=== PATIENT | male | born 1935 | race Two or more races ===

== ENCOUNTER → 2017-12-09 | Day surgery (SDC) | payer MEDICARE ==
[~2017-12-09] VITALS: Ht 180.3 cm; Wt 84.0 kg
[~2017-12-09] MED LIST: AMLO10TA2 PO; ASPI81TA23 PO; ATEN25TA PO; BENA40TA PO; BUPIVACAINE/EPINEPHRINE 0.25% PF 30 ML VIAL ONE; BUPIVACAINE/EPINEPHRINE 0.5% PF 30 ML VIAL ONE; CHLORHEXIDINE GLUCONATE 2 % 1 PACK (2 CLOTHS) TOPICAL PRN; CHLORHEXIDINE GLUCONATE 4% SOLN 120 ML BTL TOPICAL SCH; CINN500C14 PO; D-3-50003 PO; FINA5TAB2 PO; INSULIN HUMAN REGULAR 1,000 UNITS/10 ML VIAL SQ PRN; LACTATED RINGER'S 1000 ML IV PRN; METOPROLOL TARTRATE 25 MG TAB PO PRN; MIDAZOLAM HCL 2 MG/2 ML VIAL ONE; OMEG12002 PO; PIOG15TA5 PO; POVIDONE IODINE 5% (ANTISEPSIS KIT) 4 APPLICATIONS EACH NARE PRN; PRIM50TA5 PO; SODI650T PO; SODIUM CHLORID 0.9% 500 ML IV PRN; TAMS0.4C4 PO; ceFAZolin 2 GM PREMIX 50 ML IV SCH
[2017-12-09 07:38] VITALS: PULSE 66
[2017-12-09 07:49] VITALS: PULSE 69
--- NOTE | 2017-12-09 10:45 | MP ---
cc: Be Koo MD DATE OF OPERATION: 12/09/2017 SURGEON: Be Koo MD. PREOPERATIVE DIAGNOSIS: 1. Impingement syndrome of the right shoulder with full-thickness rotator cuff tear. 2. Osteoarthritis of the acromioclavicular joint, right shoulder. POSTOPERATIVE DIAGNOSIS: 1. Impingement syndrome of the right shoulder with full-thickness rotator cuff tear. 2. Osteoarthritis of the acromioclavicular joint, right shoulder. PROCEDURE PERFORMED: 1. Anterior decompression with distal claviculectomy. 2. Repair of rotator cuff, chronic. DETAILS OF THE PROCEDURE: The patient was placed on the operating table in the supine position and adequate general anesthesia was administered by the anesthesiologist, Dr. Del Angel. The patient was then transferred into a modified beach chair position and the right shoulder was prepped and draped and well padded in the usual sterile fashion. A time-out was called and the patient's name, procedure, location, etc. were fully confirmed. A superior incision was made over the mid portion between the acromial process and the distal clavicle. The wound was taken down through subcutaneous tissues and bleeding points were clamped and electrocauterized. Deep fascia was incised and the acromioclavicular joint further exposed after transection of the origin of the deltoid muscle along the anterior border of the clavicle and anterior border of the acromial process. We did encounter a thickened coracoacromial ligament, which was also excised. We did encounter almost immediate joint fluid evacuated from the underlying joint. The distal claviculectomy was further exposed and retractors placed underneath it and a transection of approximately 1 cm was carried out with a power saw. The edges were then smoothed with a high-speed bur. The acromial process itself was now thinned utilizing the same high speed bur, which allowed also for complete visualization of a good portion of the rotator cuff and humeral head. There was no longer impinging after the acromioplasty. The rotator cuff edges were developed, debrided and then brought over as far lateral as possible and then repaired with interrupted [id number] sutures utilizing #2 FiberWire. A more or less watertight closure was accomplished and the joint was placed through rotational internal and external rotation revealing no additional tears. The deltoid muscle, after thorough irrigation, was then reinserted and the gap at the distal clavicle was repaired with the deltoid being reinserted with interrupted sutures of #1 Tycron. The subcutaneous tissues were closed with running 3-0 Vicryl. The skin edges were then reapproximated with a running subcuticular 4-0 Vicryl after which Steri-Strips were applied. The patient was placed in a bulky dressing and a sling and swathe immobilizer. ESTIMATED BLOOD LOSS: Approximately 35-50 mL. COUNTS: The sponge count, needle counts and instrument counts were reportedly correct x 2. CONDITION: The patient tolerated the procedure well and was transferred to the recovery room in satisfactory condition. MD MAYA Gil/NEEMA , 10:03 AM , 10:44 AM
[2017-12-09 11:55] VITALS: BP 125/86; PULSE 78; RESP 16; TEMP 98.1; O2SAT 98
== END | disposition home or self-care (01) ==
LOC: PHSDC 06:07
PROVIDERS: ATTEND Orthopaedic Surgery
DX: M75.101 Unspecified rotator cuff tear or rupture of right shoulder, not specified as traumatic (principal); M75.41 Impingement syndrome of right shoulder; M19.011 Primary osteoarthritis, right shoulder; I10 Essential (primary) hypertension
CPT/HCPCS: 01630; 23120; 23412; 64415; J0690; J2250; J7120